=== PATIENT | female | born 1995 | race Caucasian/White ===

== ENCOUNTER 2017-01-29 23:04 | Emergency (ER) | payer MEDICAID ==
[~2017-01-29 23:04] MED LIST: FERROUS SULFAT325 M2 PO; IND20 PO; KEFLEX500 MG PO; MAGNESIUM OXID400 MG PO; NITROFURANTOIN100 MG PO; PRENATAL VITAMI1 TA1 PO; TAP5 PO
[2017-01-30 00:55] VITALS: BP 118/72
== END 2017-01-30 00:55 | disposition home or self-care (01) ==
LOC: ED 23:04
DX: J02.9 Acute pharyngitis, unspecified (principal); Z79.899 Other long term (current) drug therapy
CPT/HCPCS: J0696

== ENCOUNTER 2017-03-28 09:33 | Emergency (ER) | payer MEDICAID ==
[~2017-03-28] VITALS: Ht 162.6 cm; Wt 41.7 kg
[2017-03-28 09:38] VITALS: BP 132/88
== END 2017-03-28 10:17 | disposition home or self-care (01) ==
LOC: ED 09:33
DX: K02.9 Dental caries, unspecified (principal); E03.9 Hypothyroidism, unspecified

== ENCOUNTER 2017-07-06 07:46 | Emergency (ER) | payer MEDICAID ==
[~2017-07-06] VITALS: Ht 144.8 cm; Wt 43.6 kg
[2017-07-06 07:52] VITALS: Ht 144.8 cm; Wt 43.6 kg
[2017-07-06 08:16] LABS: BASOPHIL % 0.2 % (0-2); PLATELET COUNT 298 x10^3mcL (130-400)
[2017-07-06 08:18] LABS: microscopic required? YES; urine erythrocyte NEGATIVE (NEGATIVE)
[2017-07-06 08:31] LABS: RED CELL DISTRIBUTION WIDTH 15.5 % (11.5-14.5)
[2017-07-06 08:32] LABS: CALCIUM 8.4 mg/dL (8.5-10.1); CARBON DIOXIDE 26.4 mmol/L (21-32); CHLORIDE SERUM 104 mmol/L (98-107); CREATININE SERUM 0.2 mg/dL (0.6-1.0); GFR1 > 60 mL/min; GLUCOSE SERUM 107 mg/dL (74-106); POTASSIUM SERUM 3.7 mmol/L (3.5-5.1); SODIUM SERUM 137 mmol/L (136-145)
[2017-07-06 08:38] LABS: ALKALINE PHOSPHATASE 262 U/L (46-116); ALT/SGPT 51 U/L (14-59); AST/SGOT 38 U/L (15-37); BILIRUBIN TOTAL 0.26 mg/dL (0.20-1.00); HDL CHOLESTEROL 51 mg/dL (40-60); LIPASE 173 IU/L (73-393); TOTAL PROTEIN, SERUM 6.9 g/dL (6.4-8.2); TRIGLYCERIDES 100 mg/dL (<150)
[2017-07-06 08:39] LABS: CHOLESTEROL 107 mg/dL (<200); CHOLESTEROL/HDL RATIO 2.1
[2017-07-06 08:43] LABS: T3 TOTAL 6.78 ng/mL
[2017-07-06 08:47] LABS: AMPHETAMINE QUAL UR NONE DETECTED (NEG <=1000)
[2017-07-06 08:48] LABS: FREE T4 5.13 ng/dL (0.76-1.46)
[2017-07-06 08:52] LABS: FREE THYROXINE INDEX 13.1 ug/dL (1.4-4.5)
[2017-07-06 10:07] VITALS: BP 118/86
== END 2017-07-06 10:07 | disposition home or self-care (01) ==
LOC: ED 07:46
PROVIDERS: Specialist
DX: R07.89 Other chest pain (principal); E05.90 Thyrotoxicosis, unspecified without thyrotoxic crisis or storm
CPT/HCPCS: 83880; 84439; J1885; Q0092

== ENCOUNTER 2017-07-26 06:51 | Emergency (ER) | payer MEDICAID ==
[~2017-07-26] VITALS: Ht 144.8 cm; Wt 42.6 kg
[2017-07-26 07:33] VITALS: Ht 144.8 cm; Wt 42.6 kg
[2017-07-26 08:31] VITALS: BP 125/70
== END 2017-07-26 08:31 | disposition home or self-care (01) ==
LOC: ED 06:51
DX: K02.9 Dental caries, unspecified (principal); E05.90 Thyrotoxicosis, unspecified without thyrotoxic crisis or storm

== ENCOUNTER 2017-11-29 22:10 | Emergency (ER) | payer MEDICAID ==
[~2017-11-29] VITALS: Ht 147.3 cm; Wt 47.8 kg
[2017-11-29 22:29] VITALS: Ht 147.3 cm; Wt 47.8 kg
[2017-11-29 23:00] VITALS: BP 147/72
== END 2017-11-29 23:00 | disposition home or self-care (01) ==
LOC: ED 22:10
DX: S02.5XXA Fracture of tooth (traumatic), initial encounter for closed fracture (principal); X58.XXXA Exposure to other specified factors, initial encounter; Y93.89 Activity, other specified; Y92.89 Other specified places as the place of occurrence of the external cause; Y99.8 Other external cause status

== ENCOUNTER 2018-03-11 23:14 | Emergency (ER) | payer MEDICAID ==
[~2018-03-11] VITALS: Ht 149.9 cm; Wt 43.1 kg
[2018-03-11 23:51] VITALS: BP 131/71; Ht 149.9 cm; Wt 43.1 kg
[2018-03-12] MEDS ORDERED: TAP5 PO (17:49)
== END 2018-03-12 03:05 | disposition left against medical advice (07) ==
LOC: ED 23:14
DX: Z53.21 Procedure and treatment not carried out due to patient leaving prior to being seen by health care provider (principal)

== ENCOUNTER 2018-03-12 13:50 | Inpatient (IN) | payer MEDICAID ==
[~2018-03-12] VITALS: Ht 149.9 cm; Wt 45.0 kg
[2018-03-12 13:59] VITALS: Ht 149.9 cm; Wt 45.0 kg
[2018-03-12 14:39] LABS: BASOPHIL % 0.5 % (0-2); PLATELET COUNT 308 x10^3mcL (130-400)
[2018-03-12 14:41] LABS: UA SPECIFIC GRAVITY 1.025 (1.005-1.035); microscopic required? YES; urine erythrocyte TRACE (NEGATIVE)
[2018-03-12 14:47] LABS: CALCIUM 8.8 mg/dL (8.5-10.1); CARBON DIOXIDE 21.8 mmol/L (21-32); CHLORIDE SERUM 97 mmol/L (98-107); CREATININE SERUM 0.5 mg/dL (0.6-1.0); GFR1 > 60 mL/min; GLUCOSE SERUM 160 mg/dL (74-106); POTASSIUM SERUM 3.3 mmol/L (3.5-5.1); RED CELL DISTRIBUTION WIDTH 17.1 % (11.5-14.5); SODIUM SERUM 132 mmol/L (136-145)
[2018-03-12 14:54] LABS: AMPHETAMINE QUAL UR NONE DETECTED (See below)
[2018-03-12 14:58] LABS: ALBUMIN 3.4 g/dL (3.4-5.0); ALKALINE PHOSPHATASE 227 U/L (46-116); ALT/SGPT 84 U/L (14-59); AST/SGOT 52 U/L (15-37); BILIRUBIN TOTAL 0.4 mg/dL (0.20-1.00); C REACTIVE PROTEIN 1.4 mg/dL (<=0.9); TOTAL PROTEIN, SERUM 7.8 g/dL (6.4-8.2)
[2018-03-12 15:16] LABS: T3 TOTAL 6.99 ng/mL
[2018-03-12 15:27] LABS: CK-MB < 0.5 ng/mL (0-3.6); CREATINE KINASE 20 U/L (26-192)
[2018-03-12 15:47] LABS: ERYTHROCYTE SED RATE 23 mm/hr (0-20)
[2018-03-12 16:08] LABS: FREE T4 3.95 ng/dL (0.76-1.46)
[2018-03-12 16:09] LABS: FREE THYROXINE INDEX 12.9 ug/dL (1.4-4.5); T4(THYROXINE) 29.9 ug/dL (4.7-13.3)
[2018-03-12] MEDS ORDERED: TAP5 PO (17:49)
[2018-03-12 18:10] VITALS: BP 126/81
[2018-03-12 18:35] LABS: MAGNESIUM 1.9 mg/dL (1.8-2.4); PHOSPHOROUS 2.8 mg/dL (2.5-4.9)
[2018-03-12 18:38] LABS: CHOLESTEROL/HDL RATIO 2.3
[2018-03-12 18:49] VITALS: BP 112/64
[2018-03-12 19:38] VITALS: BP 124/51
[2018-03-12 21:35] LABS: CALCIUM 8.3 mg/dL (8.5-10.1); CARBON DIOXIDE 23.8 mmol/L (21-32); CREATININE SERUM 0.3 mg/dL (0.6-1.0); GFR1 > 60 mL/min; GLUCOSE SERUM 115 mg/dL (74-106)
[2018-03-12 21:46] LABS: CHLORIDE SERUM 106 mmol/L (98-107); POTASSIUM SERUM 4.3 mmol/L (3.5-5.1); SODIUM SERUM 136 mmol/L (136-145)
[2018-03-12 23:06] VITALS: BP 116/65
[2018-03-13 03:01] VITALS: BP 118/60
[2018-03-13 05:20] LABS: BASOPHIL % 0.1 % (0-2); PLATELET COUNT 265 x10^3mcL (130-400); RED CELL DISTRIBUTION WIDTH 17.3 % (11.5-14.5)
[2018-03-13 05:40] LABS: CALCIUM 8.7 mg/dL (8.5-10.1); CARBON DIOXIDE 20.8 mmol/L (21-32); CHLORIDE SERUM 106 mmol/L (98-107); CREATININE SERUM 0.3 mg/dL (0.6-1.0); GFR1 > 60 mL/min; GLUCOSE SERUM 93 mg/dL (74-106); MAGNESIUM 1.8 mg/dL (1.8-2.4); PHOSPHOROUS 3.9 mg/dL (2.5-4.9); POTASSIUM SERUM 4.4 mmol/L (3.5-5.1); SODIUM SERUM 138 mmol/L (136-145)
[2018-03-13 07:45] VITALS: BP 107/57
[2018-03-13 08:24] LABS: T3 TOTAL 3.52 ng/mL
[2018-03-13 08:47] LABS: FREE T4 4.79 ng/dL (0.76-1.46)
[2018-03-13 08:49] LABS: FREE THYROXINE INDEX 9.7 ug/dL (1.4-4.5); T4(THYROXINE) 23.2 ug/dL (4.7-13.3)
[2018-03-13 11:45] VITALS: BP 100/63
[2018-03-13 16:43] VITALS: BP 105/51
[2018-03-13 17:51] VITALS: BP 109/65
[2018-03-13 20:23] VITALS: BP 105/46
[2018-03-14 05:36] VITALS: BP 113/68
[2018-03-14] MEDS ORDERED: TAP5 PO (05:37)
[2018-03-14] MEDS ORDERED: IND20 PO (05:39)
[2018-03-14 06:37] VITALS: BP 113/68
[2018-03-14 06:55] LABS: BASOPHIL % 0.3 % (0-2); PLATELET COUNT 287 x10^3mcL (130-400)
[2018-03-14 07:03] LABS: RED CELL DISTRIBUTION WIDTH 17.5 % (11.5-14.5)
[2018-03-14 07:26] LABS: CALCIUM 8.6 mg/dL (8.5-10.1); CARBON DIOXIDE 22.5 mmol/L (21-32); CHLORIDE SERUM 109 mmol/L (98-107); CREATININE SERUM 0.2 mg/dL (0.6-1.0); GFR1 > 60 mL/min; GLUCOSE SERUM 82 mg/dL (74-106); MAGNESIUM 1.6 mg/dL (1.8-2.4); PHOSPHOROUS 3.9 mg/dL (2.5-4.9); POTASSIUM SERUM 3.6 mmol/L (3.5-5.1); SODIUM SERUM 143 mmol/L (136-145)
[2018-03-14 07:30] LABS: T3 TOTAL 2.68 ng/mL
[2018-03-14 07:53] LABS: FREE T4 3.31 ng/dL (0.76-1.46)
[2018-03-14 08:05] LABS: FREE THYROXINE INDEX 7.8 ug/dL (1.4-4.5)
[2018-03-14 08:39] VITALS: BP 105/52
== END 2018-03-14 11:19 | disposition home or self-care (01) | DRG 427 ==
LOC: ED 13:50 → IC 17:17 → DU 17:17 → IC 18:20 → DU 03-13 15:08
PROVIDERS: Family Medicine; Specialist
DX: E05.91 Thyrotoxicosis, unspecified with thyrotoxic crisis or storm (principal); N17.0 Acute kidney failure with tubular necrosis; N39.0 Urinary tract infection, site not specified; M94.0 Chondrocostal junction syndrome [Tietze]; E87.1 Hypo-osmolality and hyponatremia; E87.6 Hypokalemia; R80.9 Proteinuria, unspecified; Z68.1 Body mass index [BMI] 19.9 or less, adult; Z91.14 Patient's other noncompliance with medication regimen
CPT/HCPCS: 36600; 83880; 84439; 94150; G0480; J0696; J1885; J2270; J2405; J3490; J7030; Q0092

== ENCOUNTER 2018-06-21 10:26 | Emergency (ER) | payer MEDICAID ==
[~2018-06-21] VITALS: Ht 147.3 cm; Wt 46.8 kg
[2018-06-21 10:46] VITALS: Ht 147.3 cm; Wt 46.8 kg
[2018-06-21 11:36] LABS: BASOPHIL % 0.5 % (0-2); PLATELET COUNT 321 x10^3mcL (130-400)
[2018-06-21 11:40] LABS: CALCIUM 8.5 mg/dL (8.5-10.1); CHLORIDE SERUM 102 mmol/L (98-107); CREATININE SERUM 0.4 mg/dL (0.6-1.0); GFR1 > 60 mL/min; GLUCOSE SERUM 92 mg/dL (74-106); POTASSIUM SERUM 3.5 mmol/L (3.5-5.1); SODIUM SERUM 137 mmol/L (136-145)
[2018-06-21 11:41] LABS: UA SPECIFIC GRAVITY 1.025 (1.005-1.035); microscopic required? YES; urine erythrocyte NEGATIVE (NEGATIVE)
[2018-06-21 11:41] LABS: RED CELL DISTRIBUTION WIDTH 16.3 % (11.5-14.5)
[2018-06-21 12:17] VITALS: BP 126/76
== END 2018-06-21 12:20 | disposition left against medical advice (07) ==
LOC: ED 10:26
PROVIDERS: Emergency Medicine
DX: O20.0 Threatened abortion (principal); O23.41 Unspecified infection of urinary tract in pregnancy, first trimester; O99.281 Endocrine, nutritional and metabolic diseases complicating pregnancy, first trimester; Z3A.08 8 weeks gestation of pregnancy
CPT/HCPCS: 36415

== ENCOUNTER 2018-12-28 16:16 | Emergency (ER) | payer MEDICAID ==
[~2018-12-28] VITALS: Ht 147.3 cm; Wt 48.1 kg
[2018-12-28 16:21] VITALS: Ht 147.3 cm; Wt 48.1 kg
[2018-12-28 18:47] LABS: FREE T4 6.71 ng/dL (0.76-1.46)
[2018-12-28 18:53] LABS: FREE THYROXINE INDEX 15.3 ug/dL (1.4-4.5); T4(THYROXINE) 36.4 ug/dL (4.7-13.3)
[2018-12-28 19:05] LABS: T3 TOTAL 6.42 ng/mL
[2018-12-28 19:20] LABS: BASOPHIL % 0.3 % (0-2); PLATELET COUNT 255 x10^3mcL (130-400)
[2018-12-28 19:31] LABS: RED CELL DISTRIBUTION WIDTH 20.2 % (11.5-14.5)
[2018-12-28 19:32] LABS: CALCIUM 9.5 mg/dL (8.5-10.1); CARBON DIOXIDE 23.7 mmol/L (21-32); CHLORIDE SERUM 105 mmol/L (98-107); CREATININE SERUM 0.4 mg/dL (0.6-1.0); GFR1 > 60 mL/min; GLUCOSE SERUM 91 mg/dL (74-106); POTASSIUM SERUM 3.4 mmol/L (3.5-5.1); SODIUM SERUM 142 mmol/L (136-145)
[2018-12-28 19:37] LABS: ALBUMIN 3.7 g/dL (3.4-5.0); ALKALINE PHOSPHATASE 196 U/L (46-116); ALT/SGPT 135 U/L (14-59); AST/SGOT 71 U/L (15-37); BILIRUBIN TOTAL 0.58 mg/dL (0.20-1.00); TOTAL PROTEIN, SERUM 7.6 g/dL (6.4-8.2)
[2018-12-28 20:03] LABS: ovalocyte/elliptocyte 1+; rbc morphology (normal/abnorm) ABNORMAL (NORMAL)
[2018-12-28 20:05] VITALS: BP 137/81
== END 2018-12-28 21:18 | disposition home or self-care (01) ==
LOC: ED 16:16
PROVIDERS: Emergency Medicine
DX: E05.90 Thyrotoxicosis, unspecified without thyrotoxic crisis or storm (principal); R07.89 Other chest pain; R42 Dizziness and giddiness
CPT/HCPCS: 84439; J7030

== ENCOUNTER 2019-08-10 17:38 | Emergency (ER) | payer MEDICAID ==
[~2019-08-10] VITALS: Ht 147.3 cm; Wt 47.2 kg
[2019-08-10 18:16] VITALS: Ht 147.3 cm; Wt 47.2 kg
[2019-08-10 21:53] VITALS: BP 155/87
== END 2019-08-10 21:53 | disposition home or self-care (01) ==
LOC: ED 17:38
DX: N39.0 Urinary tract infection, site not specified (principal); E05.90 Thyrotoxicosis, unspecified without thyrotoxic crisis or storm; Z98.890 Other specified postprocedural states
CPT/HCPCS: J1885

== ENCOUNTER 2019-11-07 20:20 | Emergency (ER) | payer MEDICAID ==
[~2019-11-07] VITALS: Ht 152.4 cm; Wt 44.0 kg
[2019-11-07 20:23] VITALS: Ht 152.4 cm; Wt 44.0 kg
[2019-11-07 21:05] LABS: BASOPHIL % 0.5 % (0-2); PLATELET COUNT 227 x10^3mcL (130-400); RED CELL DISTRIBUTION WIDTH 13.6 % (11.5-14.5)
[2019-11-07 21:19] LABS: CALCIUM 8.6 mg/dL (8.5-10.1); CARBON DIOXIDE 25.1 mmol/L (21-32); CHLORIDE SERUM 98 mmol/L (98-107); CREATININE SERUM 0.4 mg/dL (0.6-1.0); GFR1 > 60 mL/min; GLUCOSE SERUM 157 mg/dL (74-106); POTASSIUM SERUM 3.5 mmol/L (3.5-5.1); SODIUM SERUM 133 mmol/L (136-145)
[2019-11-07 21:21] LABS: ALKALINE PHOSPHATASE 166 U/L (46-116); ALT/SGPT 35 U/L (14-59); AST/SGOT 21 U/L (15-37); BILIRUBIN TOTAL 0.4 mg/dL (0.20-1.00); LIPASE 90 IU/L (73-393); TOTAL PROTEIN, SERUM 6.9 g/dL (6.4-8.2)
[2019-11-07 21:23] LABS: ALBUMIN 3.3 g/dL (3.4-5.0)
[2019-11-07 21:32] LABS: FREE T4 4.98 ng/dL (0.76-1.46)
[2019-11-07 21:41] LABS: T3 TOTAL 7.13 ng/mL
[2019-11-07 21:53] LABS: FREE THYROXINE INDEX 12.9 ug/dL (1.4-4.5); T4(THYROXINE) 29.3 ug/dL (4.7-13.3)
[2019-11-07 22:58] VITALS: BP 123/81
== END 2019-11-07 22:58 | disposition home or self-care (01) ==
LOC: ED 20:20
PROVIDERS: Emergency Medicine
DX: O26.891 Other specified pregnancy related conditions, first trimester (principal); O99.619 Diseases of the digestive system complicating pregnancy, unspecified trimester; O99.281 Endocrine, nutritional and metabolic diseases complicating pregnancy, first trimester; K80.50 Calculus of bile duct without cholangitis or cholecystitis without obstruction
CPT/HCPCS: 84439; J2270; J2405; J7030; Q0092